=== PATIENT | male | born 1945 | race Caucasian/White ===

== ENCOUNTER 2020-03-20 14:50 | Inpatient (IN) | payer MEDICARE ==
[~2020-03-20] VITALS: Ht 185.4 cm; Wt 84.4 kg
--- NOTE | ~2020-03-20 | RHP ---
PATIENT: JENNIFER SHANNON MEDICAL RECORD: [id number] ACCOUNT: [id number] LOCATION:[place] [id number] : 47 ADMISSION DATE: 03/20/20 REHABILITATION HISTORY AND PHYSICAL EXAMINATION POST ADMISSION PHYSICIAN EXAMINATION ADMISSION DIAGNOSIS: Cellulitis. HISTORY OF PRESENT ILLNESS: The patient presented secondary to persistent right foot pain and also some ulcers and low-grade fever. The patient was COVID negative. He was seen and evaluated for diabetic foot ulcer. Wound apparently began to develop in the fall of 2018 when the patient's daughter noted that he had a screw in the bottom of his foot. He had been seen at [facility] for wound care management, it did not seem to improve. Labs showed an elevated white count. The patient was seen and evaluated by Dr. Yoon, a quality control representative there. 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 He has been on IV antibiotics including Zosyn. He is having dressing changes. He does have a little bit of bloody discharge. He had been started on Entresto. He has had a PICC line placed. He has got to be nonweightbearing on his right lower extremity with limited functional mobility. He has ambulated 3 feet with min assist and transfers with min assist and performs ADLs with mid to mod assist. He is not safe to return home at this time, but hopefully with the rehabilitation he will get better. COMORBIDITIES: In this patient include coronary artery disease, cellulitis, diabetes, hypertension, peripheral arterial disease. PAST MEDICAL HISTORY: Significant for hypertension, diabetes, peripheral arterial disease, coronary artery disease. PAST SURGICAL HISTORY: Includes coronary artery bypass grafting. ALLERGIES: None. CURRENT MEDICATIONS: Include Protonix 40 mg daily. He is on isosorbide 30 mg daily, Plavix 75 mg daily, Entresto 1 tab b.i.d., Lipitor 40 mg daily, Zosyn 4.5 g q.6 hours, Woodland 10/325 one tab q.4-6 hours p.r.n., Coreg 3.125 mg b.i.d. with meals, metformin 1000 mg b.i.d., and MiraLax 17 grams in 8 ounces of water daily. HABITS: No alcohol or tobacco use times. FAMILY HISTORY: Noncontributory. SOCIAL HISTORY: The patient hopes to return back home and get back to his prior level of functioning. REVIEW OF SYSTEMS: GENERAL: Does complain of weakness and fatigue. HEENT: Denies cold, cough, or congestion. CARDIOVASCULAR: Denies any chest pain. PHYSICAL EXAMINATION: VITAL SIGNS: Stable, afebrile. GENERAL: Elderly gentleman, in no acute distress upon exam. HISTORY AND PHYSICAL [id number] JENNIFER SHANNON HEENT: Normocephalic and atraumatic. Mucosa moist. NECK: Supple. No lymphadenopathy. LUNGS: Clear in upper dugan. HEART: Regular rate and rhythm. No murmurs, rubs or gallops. ABDOMEN: Soft and nondistended. Positive bowel sounds times 4. EXTREMITIES: He does have postop area that is noted and has normal swelling to this region. Minimal discharge. NEUROLOGIC: He does have some proximal muscle weakness. LABORATORY DATA: His white count is 9.7, H&H 9.7 and 38.1, and platelet count is noted to be 298. Sodium 137, potassium 4.3, BUN and creatinine of 12 and 1.3. Blood sugar is noted to be 211. ASSESSMENT: This 74-year-old gentleman admitted to the rehab with a working diagnosis of cellulitis of extremity. The patient has potential to make improvement. We instituted the following multidisciplinary therapies to be not limited to physical, occupational, respiratory, speech, nutritional services, prosthetics and orthotics. Given his complex medical condition and risk for more complications, rehabilitation services cannot be provided at a low level of care such as long term facility. PLAN: 1. Admit to [facility] for an inpatient therapy to include the following disciplines; A. Physical therapy to improve gait, all transfer skills and bed mobility to a modified independent level. B. Occupational therapy to improve activities of daily living. C. Case management to help with discharge planning and placement options. D. Nutrition to assist with nutritional needs. E. Rehabilitation nursing to assist in monitoring the patient's underlying medical conditions and to assist with any type of bowel or bladder management. 2. The patient's current medication and medical care will be continued. 3. The patient will be placed on standard fall precautions. 4. The patient's estimated length of stay is approximately 7-10 days. 5. We will discuss this patient during care team staff meeting this week. TRANSINT:[id number] Voice Confirmation ID: [id number] DOCUMENT ID: [id number] EROS notes whether there has been none or any medical/functional change since admission: - No change since preadmission screen. EROS attests patient continues to be appropriate for IRF: - Continues to be appropriate. HISTORY AND PHYSICAL [id number] JENNIFER SHANNON JOHN SCOTT MD CC: [id number] DICTATION DATE: 03/21/20 08 PERSONAL SERVICE REPRESENTATIVE: 03/21/20 1008 ADM IN [place] [id number] [place] [id number]
[2020-03-20] MEDS ORDERED: LIPITOR40 MG PO ×2 (15:55→15:59)
[2020-03-20] MEDS ORDERED: AUGMENTIN 875-11 TAB (15:55)
[2020-03-20] MEDS ORDERED: COREG12.5 MG PO (15:56)
[2020-03-20] MEDS ORDERED: AMIODARONE HCL200 MG (15:56)
[2020-03-20] MEDS ORDERED: PLAVIX75 MG PO (15:58)
[2020-03-20] MEDS ORDERED: OMEPRAZOLE20 M1 PO (15:58)
[2020-03-20] MEDS ORDERED: ISOSORBIDE MONO30 M1 PO (15:59)
[2020-03-20] MEDS ORDERED: ENTRESTO 24 MG1 EACH PO (16:00)
[2020-03-20] MEDS ORDERED: GLUCOPHAGE1000 MG PO (16:00)
[2020-03-20] MEDS ORDERED: ZOSYN 4.5 GM/N4.5 G1 IV (16:01)
--- NOTE | 2020-03-20 19:53 | NUR ---
PT ASLEEP, NO NEEDS NOTED, FALL PRECAUTIONS IN PLACE, FLUIDS/CALL LIGHT WITHIN REACH, NEW ADMIT, RT FOOT TOES AMPUTEE, NWB RT FOOT, MOD ASSIST
[2020-03-20 21:24] VITALS: BP 136/59
[2020-03-21 06:48] LABS: BASOPHILS 0.2 % (0-2); EOSINOPHILS 5.2 % (0-7); HEMATOCRIT 30.1 % (42.0-54.0); HEMOGLOBIN 9.7 g/dL (13.5-17.5); IMMATURE GRANULOCYTES 0.4 % (0-5); LYMPHOCYTES 16.7 % (15-50); MCH 26.6 pg (26.0-34.0); MCHC 32.2 g/dL (31.0-37.0); MCV 82.5 fL (80.0-100.0); MEAN PLATELET VOLUME 9.1 fL (7.4-10.4); MONOCYTES 8.1 % (2-11); NEUTROPHILS 69.4 % (40-80); PLATELET COUNT 298 10x3/uL (130-400); RBC 3.65 10x6/uL (4.20-6.10); RDW 14.2 % (11.5-14.5); WBC 9.7 10x3/uL (4.8-10.8)
[2020-03-21 06:57] LABS: ANION GAP 10.3 mmol/L (8-16); CALCIUM 8.6 mg/dL (8.5-10.1); CREATININE - SERUM 1.3 mg/dL (0.6-1.3); POTASSIUM - SERUM 4.3 mmol/L (3.5-5.1)
--- NOTE | 2020-03-21 07:59 | NUR ---
SHIFT ASSMT COMPLETED.
[2020-03-21 08:24] VITALS: BP 113/63
[2020-03-21 13:29] VITALS: Ht 185.4 cm; Wt 84.4 kg
--- NOTE | 2020-03-21 14:58 | NUR ---
CARE TEAM MEETING: PATIENT IS NEW TO THE UNIT AND WILL BE RA AT NEXT MEETING. WILL CONTINUE TO FOLLOW WITH PATIENT.
[2020-03-21 20:07] VITALS: BP 128/57
--- NOTE | 2020-03-21 20:41 | NUR ---
PT ASLEEP AROUSES EASILY TO VOICE, NO IMMEDIATE NEEDS NOTED, FALL PRECAUTIONS IN PLACE, FLUIDS/CALL LIGHT WITHIN REACH
--- NOTE | 2020-03-22 00:47 | NUR ---
ZOSYN STARTED, LINES GOOD BLOOD RETURN AND FLUSHED EASILY, PICC PATENT, ALCOHOL CAPS IN USE, PT C/O FOOT PAIN FOR FIRST TIME SINCE ARRIVAL, PRN PAIN MED GIVEN
--- NOTE | 2020-03-22 04:59 | NUR ---
PT ASLEEP AROUSES EASILY TO VOICE, RESPIRATIONS EVEN, NO NEEDS NOTED, FALL PRECAUTIONS IN PLACE, FLUIDS/CALL LIGHT WITHIN REACH
[2020-03-22 08:00] VITALS: BP 111/53
--- NOTE | 2020-03-22 08:00 | NUR ---
SHIFT ASSMT COMPLETED.
--- NOTE | 2020-03-22 13:03 | NUR ---
PATIENT ADMITTED TO [facility] FROM [facility]. DME AT HOME IS A WALKER, CANE AND A BEDSIDE COMMODE. PATIENT WILL DISCHARGE HOME WITH FAMILY. WILL CONTINUE TO FOLLOW WITH PATIENT.
--- NOTE | 2020-03-22 20:00 | NUR ---
PT ASLEEP AROUSES EASILY TO VOICE, RESPIRATIONS EVEN, NO NEEDS NOTED, FALL PRECAUTIONS IN PLACE, FLUIDS/CALL LIGHT WITHIN REACH
[2020-03-22 21:19] VITALS: BP 193/100
[2020-03-23 06:46] LABS: BASOPHILS 0.1 % (0-2); EOSINOPHILS 3.8 % (0-7); HEMOGLOBIN 8.9 g/dL (13.5-17.5); IMMATURE GRANULOCYTES 0.2 % (0-5); LYMPHOCYTES 16.6 % (15-50); MCH 26.3 pg (26.0-34.0); MCHC 31.8 g/dL (31.0-37.0); MCV 82.8 fL (80.0-100.0); MEAN PLATELET VOLUME 9.2 fL (7.4-10.4); NEUTROPHILS 71.3 % (40-80); PLATELET COUNT 277 10x3/uL (130-400); RBC 3.38 10x6/uL (4.20-6.10); RDW 14.6 % (11.5-14.5); WBC 8.9 10x3/uL (4.8-10.8)
[2020-03-23 06:51] LABS: CALCIUM 8.7 mg/dL (8.5-10.1); CREATININE - SERUM 1.3 mg/dL (0.6-1.3)
--- NOTE | 2020-03-23 13:22 | NUR ---
Nutrition Follow-up: Diet: Diabetic + Glucerna TID PO intake: ~25% average x last 3 meals. He states that his appetite is "up and down." States that he loves the Glucerna and is drinking all of them. Last BM: 03/23/20. Wt: 186# (03/21/20) Meds noted: metformin. Labs noted: Glu 122(H) Recommend continue current diet and oral nutrition supplement. Encouraged PO intake. RD following.
[2020-03-23 13:28] VITALS: BP 111/63
[2020-03-23 20:00] VITALS: BP 154/67
--- NOTE | 2020-03-23 20:00 | NUR ---
PATIENT RECEIVED SITTING UP IN BED. ASSESSMENT & VITAL SIGNS DONE. IV PATENT. NO SIGNS IF ZOSYN REACTION. NO C/O PAIN OR DISTRESS. PATIENT TOILETED. VOID & SOFT BM. BED LOW. CALL LIGHT WITHIN REACH. WILL CONTINUE TO MONITOR.
--- NOTE | 2020-03-24 04:06 | NUR ---
I have reviewed this patient and I concur with the Shift Assessment completed by the Licensed Practical Nurse today this shift.
[2020-03-24 11:07] VITALS: BP 97/59
--- NOTE | 2020-03-24 18:22 | NUR ---
C/O CHEST PAIN MIDSTERNAL RADIATING INTO NECK AND DOWN LEFT ARM. B/P 164/100 P-83 SP02 100%. CALL TO DR. TSANG AND ORDER RECIEVED FOR NITRO 0.4 MG GIVEN PER PROTOCOL. FIRST DOSE GIVEN.
--- NOTE | 2020-03-24 18:29 | NUR ---
2ND DOSE NITRO GIVEN. STATES PAIN HAS DECREASED FOR A 6 WHEN IT STARTED TO A 3 NOW AND FEELING MUCH BETTER. B/P NOW 159/98 P-81 SP02 100%.
--- NOTE | 2020-03-24 18:42 | NUR ---
STATES PAIN IS NOW AT ABOUT A 1. B/P 149/88 SP02 100%
--- NOTE | 2020-03-24 19:15 | NUR ---
DR. MONSIVAIS RETURNED CALL IN REGARDS TO MR. SHANNON'S CHEST PAIN. INFORMED DR. MONSIVAIS NITRO PROTOCOL WAS FOLLOWED BY DAYSIASYEDA RN. PT STATES "CHEST PAIN HAS SUBSIDED". DR. MONSIVAIS ORDERED CARDIAC ENZEMYS NOW AND REPEAT IN 6 HOURS. THIS NURSE REPEATED ORDERS BACK AND DR. MONSIVAIS VERIFIED.
[2020-03-24 20:34] VITALS: BP 138/71
[2020-03-24 21:03] LABS: CKMB 1.7 U/L (0.0-3.6); CREATINE KINASE 56 UL (21-232); TROPONIN-I 0.025 ng/mL (0.000-0.060)
--- NOTE | 2020-03-24 22:31 | NUR ---
LAB BACK ALL WERE WITHIN NORMAL LIMITS. PATIENT HAS NO PAIN OR DISTRESS AT THIS TIME. CALL LIGHT WITHIN REACH. WILL CONTINUE TO MONITOR.
--- NOTE | 2020-03-25 01:38 | NUR ---
CHANGED BATTERY IN WEARABLE DEFIB, PLACED USED BATTERY ON PARKING METER ATTENDANT. ENSURED DEFIB FUNCTIONING PROPERLY. PT REQUESTS TUMS FOR HEARTBURN ADMININSTERED 1000MG TUMS PER ORDER. NO OTHER NEEDS VOICED. WILL CONTINUE TO MONITOR
--- NOTE | 2020-03-25 02:45 | NUR ---
I have reviewed this patient and I concur with the Shift Assessment completed by the Licensed Practical Nurse today this shift.
[2020-03-25 03:01] LABS: CKMB 2.4 U/L (0.0-3.6); CREATINE KINASE 56 UL (21-232)
[2020-03-25 03:03] LABS: TROPONIN-I 0.202 ng/mL (0.000-0.060)
--- NOTE | 2020-03-25 03:06 | NUR ---
DEANNA, LAB CALLED CRITICAL TROPONIN 0.202. CALLED DR. MONSIVAIS LEFT DETAILED VM. PT IS CURRENTLY RESTING COMFORTABLY. VS STABLE. NO COMPLAINTS OF CHEST PAIN. DEFIB FUNCTIONING PROPERLY. WILL CONTINUE TO MONITOR
--- NOTE | 2020-03-25 03:39 | NUR ---
PATIENT EYES CLOSED. RESPIRATIONS 18 & EVEN. BED LOW. CALL LIGHT WITHIN REACH. WILL CONTINUE TO MONITOR.
[2020-03-25 10:12] VITALS: BP 140/65
--- NOTE | 2020-03-25 10:36 | NUR ---
PT HAS HAD SEVERAL BOUTS OF DIARRHEA TODAY.
[2020-03-25 20:00] VITALS: BP 127/56
--- NOTE | 2020-03-25 20:00 | NUR ---
PATIENT RECEIVED LAYING IN BED. ASSESSMENT & VITAL SIGNS DONE. NO ADVERSE REACTION TO IV ZOSYN AT THIS TIME. BED LOW. ALARM ON. CALL LIGHT WITHIN REACH. WILL CONTINUE TO MONITOR.
--- NOTE | 2020-03-26 03:15 | NUR ---
PATIENT USED CALL LIGHT FOR ASSIST. PATIENT PIVOTED ON LEFT FOOT OUT OF BED. PATIENT USED WALKER INTO BATHROOM. PATIENT HAD VOID & BM. PATIENT RETURNED TO LOW BED. CALL LIGHT WITHIN REACH. WILL CONTINUE TO MONITOR.
--- NOTE | 2020-03-26 03:17 | NUR ---
I have reviewed this patient and I concur with the Shift Assessment completed by the Licensed Practical Nurse today this shift.
[2020-03-26 07:12] LABS: ANION GAP 7.9 mmol/L (8-16); CALCIUM 8.8 mg/dL (8.5-10.1); CARBON DIOXIDE 25.6 mmol/L (21.0-32.0); CREATININE - SERUM 1.3 mg/dL (0.6-1.3); POTASSIUM - SERUM 3.5 mmol/L (3.5-5.1)
[2020-03-26 07:49] LABS: BASOPHILS 0.2 % (0-2); HEMATOCRIT 28.2 % (42.0-54.0); HEMOGLOBIN 9.1 g/dL (13.5-17.5); IMMATURE GRANULOCYTES 0.2 % (0-5); LYMPHOCYTES 16.7 % (15-50); MCH 26.6 pg (26.0-34.0); MCHC 32.3 g/dL (31.0-37.0); MCV 82.5 fL (80.0-100.0); MEAN PLATELET VOLUME 9.1 fL (7.4-10.4); MONOCYTES 8.1 % (2-11); NEUTROPHILS 68.8 % (40-80); PLATELET COUNT 277 10x3/uL (130-400); RBC 3.42 10x6/uL (4.20-6.10); RDW 15.4 % (11.5-14.5); WBC 8.2 10x3/uL (4.8-10.8)
[2020-03-26 08:00] VITALS: BP 160/70
--- NOTE | 2020-03-26 08:10 | NUR ---
ALERT AND ORIENTED. EATING BREAKFAST. CL IN REACH.
--- NOTE | 2020-03-26 13:44 | NUR ---
NO CHANGE IN ASSESSMENT. DRESSING WAS CHANGED USING STERILE PROCEDURE. DRESSING HAD SL AMT BLOODY DRAINAGE LEAKING THROUGH GAUZE/CAMILA. NO C/O PAIN. REMINDED PATIENT TO NOT BE PUTTING PRESSURE ON R LE.
--- NOTE | 2020-03-26 16:11 | NUR ---
CLINICAL UPDATES FAXED TO MARIA M OROZCO, AUTH. # [id number], FAXED TO , CONFORMATION RECIEVED OF FAX. WILL CONTINUE TO FOLLOW WITH PATIENT.
--- NOTE | 2020-03-26 16:30 | NUR ---
PARTICIPATED IN THERAPY TODAY. NO DISTRESS NOTED.
[2020-03-26 19:27] VITALS: BP 156/68
--- NOTE | 2020-03-26 19:34 | NUR ---
PT IN BED ASLEEP, NO IMMEDIATE NEEDS NOTED, RESPIRATIONS EVEN UNLABORED, FALL PRECAUTIONS IN PLACE, FLUIDS/CALL LIGHT WITHIN REACH
--- NOTE | 2020-03-26 22:39 | NUR ---
PT ASLEEP AROUSES EASILY TO VOICE, NO IMMEDIATE NEEDS NOTED, RESPIRATIONS EVEN UNLABORED, FALL PRECAUTIONS IN PLACE, FLUIDS/CALL LIGHT WITHIN REACH
--- NOTE | 2020-03-27 00:10 | NUR ---
PT PIPERACILLIN RUNNING PER ORDER, PICC PATENT, DRSG ADHERED TO SKIN ALCOHOL CAPS IN USE, RED LINE FLUSHING WELL, PURPLE LINE UNFLUSHABLE, WILL ASK FOR HEPARIN FLUSH FOR PURPLE LINE
--- NOTE | 2020-03-27 01:33 | NUR ---
PT ASLEEP AROUSES EASILY TO VOICE, NO IMMEDIATE NEEDS NOTED, RESPIRATIONS EVEN UNLABORED, FALL PRECAUTIONS IN PLACE, FLUIDS/CALL LIGHT WITHIN REACH
[2020-03-27 07:30] VITALS: BP 178/82
--- NOTE | 2020-03-27 12:52 | NUR ---
Nutrition Follow-up: Diet: Diabetic + Glucerna TID PO intake: ~84% average x last 4 meals. He reports that his appetite is "alright." States that he loves the Glucerna and is drinking them all. Last BM: 03/26/20. Wt: 186# (03/21/20) Meds noted: metformin. Labs noted: Glu 95(WNL) Skin: non-healing wound on R foot s/p metatarsal amputation Recommend continue current diet and oral nutrition supplements. RD following.
--- NOTE | 2020-03-27 19:28 | NUR ---
PT IN BED WATCHING TV, PIPERACILIN RUNNING, NO NEEDS NOTED, FALL PRECAUTIONS IN PLACE, FLUIDS/CALL LIGHT WITHIN REACH
[2020-03-27 21:07] VITALS: BP 98/50
[2020-03-28 06:41] LABS: BASOPHILS 0.4 % (0-2); EOSINOPHILS 7.4 % (0-7); HEMOGLOBIN 8.3 g/dL (13.5-17.5); IMMATURE GRANULOCYTES 0.1 % (0-5); LYMPHOCYTES 25.4 % (15-50); MCH 26.5 pg (26.0-34.0); MCHC 31.9 g/dL (31.0-37.0); MCV 83.1 fL (80.0-100.0); MEAN PLATELET VOLUME 9.1 fL (7.4-10.4); MONOCYTES 9.3 % (2-11); NEUTROPHILS 57.4 % (40-80); PLATELET COUNT 261 10x3/uL (130-400); RBC 3.13 10x6/uL (4.20-6.10); RDW 16.2 % (11.5-14.5); WBC 7.3 10x3/uL (4.8-10.8)
[2020-03-28 06:46] LABS: ANION GAP 9.2 mmol/L (8-16); CALCIUM 8.6 mg/dL (8.5-10.1); CARBON DIOXIDE 26.6 mmol/L (21.0-32.0); CREATININE - SERUM 1.2 mg/dL (0.6-1.3); POTASSIUM - SERUM 3.8 mmol/L (3.5-5.1)
[2020-03-28 08:08] VITALS: BP 103/40
--- NOTE | 2020-03-28 08:15 | NUR ---
SHIFT ASSMT COMPLETED.CL IN REACH.BREAKFAST TRAY GIVEN.
[2020-03-28 11:01] VITALS: BP 92/44
[2020-03-28 11:04] VITALS: BP 90/46
--- NOTE | 2020-03-28 19:43 | NUR ---
PT ASLEEP AROUSES EASILY TO VOICE, RESPIRATIONS EVEN AND UNLABORED, NO IMMEDIATE NEEDS NOTED, FALL PRECAUTIONS IN PLACE, FLUIDS/CALL LIGHT WITHIN REACH
[2020-03-28 21:15] VITALS: BP 149/52
--- NOTE | 2020-03-29 03:14 | NUR ---
PICC DRSG CHANGED, USING PICC DRSG CHANGE SYSTEM
[2020-03-29 07:07] LABS: BASOPHILS 0.5 % (0-2); EOSINOPHILS 8.3 % (0-7); HEMATOCRIT 21.5 % (42.0-54.0); IMMATURE GRANULOCYTES 0.5 % (0-5); LYMPHOCYTES 22.4 % (15-50); MCH 26.7 pg (26.0-34.0); MCHC 32.1 g/dL (31.0-37.0); MCV 83.3 fL (80.0-100.0); MEAN PLATELET VOLUME 8.8 fL (7.4-10.4); MONOCYTES 6.3 % (2-11); RBC 2.58 10x6/uL (4.20-6.10); RDW 16.4 % (11.5-14.5); WBC 6.5 10x3/uL (4.8-10.8)
[2020-03-29 07:11] LABS: HEMOGLOBIN 6.9 g/dL (13.5-17.5); PLATELET COUNT 200 10x3/uL (130-400)
--- NOTE | 2020-03-29 07:30 | NUR ---
RECEIVED THIS AM AWAKE,RESTING QUIETLY IN BED.DENIES NEEDS.DERSSING INTACT TO RT FOOT,CLEAN AND DRY.CL IN EASY REACH,BED IN LOW POSITION.BED ALARM ON.WILL COTINUE WITH CURRENT PLAN OF CARE.
[2020-03-29 08:00] VITALS: BP 118/46
--- NOTE | 2020-03-29 12:20 | NUR ---
CARE TEAM MEETING: PATIENT IS MAKING PROGRESS IN THERAPY. HIS TENATIVE DISCHARGE DATE IS 04/05/20. WILL CONTINUE TO FOLLOW WITH PATIENT.
--- NOTE | 2020-03-29 20:48 | NUR ---
PT IN BED WITH 1ST UNIT OF PRBC'S RUNNING, HAD TO GET 2ND UNIT AND START IT STILL NEED TO RUN 1800 ZOSYN THAT DAY SHIFT DID NOT RUN, VS GOOD NO ADVERSE REACTIONS NOTED, T-98.2, P-75, R-20, BP-153/78 BEGINNING T-98.1, P-71, R-18, BP-149/67 15MIN VS
[2020-03-29 21:07] VITALS: BP 143/63
--- NOTE | 2020-03-29 23:41 | NUR ---
PT PRBC'S INFUSION COMPLETE WITHOUT ADVERSE REACTION,
--- NOTE | 2020-03-30 00:39 | NUR ---
PTS 0000 PIPERACILLIN COMPLETE, WASTED 6P PIPERACILLIN FROM 7A-7P SHIFT MED WAS MIXED BUT NOT GIVEN DUE TO 1ST UNIT OF PRBC'S RUNNING, THIS NURSE DID NOT KNOW HOW LONG IT HAD BEEN MIXED OR WHAT THE LIFE/QUALITY OF THIS MED WOULD BE
--- NOTE | 2020-03-30 00:45 | NUR ---
PT ASLEEP, AROUSES EASILY TO VOICE, RESPIRATIONS EVEN AND UNLABORED, NO IMMEDIATE NEEDS NOTED AT THIS TIME, FALL PRECAUTIONS IN PLACE, FLUIDS/CALL LIGHT WITHIN REACH
--- NOTE | 2020-03-30 04:17 | NUR ---
PT ASLEEP, AROUSES EASILY TO VOICE, RESPIRATIONS EVEN AND UNLABORED, NO IMMEDIATE NEEDS NOTED AT THIS TIME, FALL PRECAUTIONS IN PLACE, FLUIDS/CALL LIGHT WITHIN REACH
[2020-03-30 05:52] LABS: BASOPHILS 0.6 % (0-2); EOSINOPHILS 12.9 % (0-7); IMMATURE GRANULOCYTES 0.3 % (0-5); LYMPHOCYTES 24.5 % (15-50); MCH 26.9 pg (26.0-34.0); MCHC 32.4 g/dL (31.0-37.0); MCV 83.2 fL (80.0-100.0); MEAN PLATELET VOLUME 9.1 fL (7.4-10.4); MONOCYTES 6.9 % (2-11); NEUTROPHILS 54.8 % (40-80); PLATELET COUNT 239 10x3/uL (130-400); WBC 6.7 10x3/uL (4.8-10.8)
[2020-03-30 06:23] LABS: ANION GAP 12.5 mmol/L (8-16); CALCIUM 8.8 mg/dL (8.5-10.1); CARBON DIOXIDE 28.5 mmol/L (21.0-32.0); CREATININE - SERUM 1.3 mg/dL (0.6-1.3)
[2020-03-30 06:42] LABS: HEMATOCRIT 34.6 % (42.0-54.0); HEMOGLOBIN 11.2 g/dL (13.5-17.5); RBC 4.16 10x6/uL (4.20-6.10)
--- NOTE | 2020-03-30 08:05 | NUR ---
ALERT AND ORIENTED X3, UP IN WC AT BEDSIDE HAVING BREAKFAST. CL AT SIDE
[2020-03-30 08:28] VITALS: BP 141/64
--- NOTE | 2020-03-30 09:30 | NUR ---
DOWN TO THERAPY GYM WITH THERAPY. DENIES NEEDS
--- NOTE | 2020-03-30 13:26 | NUR ---
Nutrition Follow-up: Diet: Diabetic + Glucerna TID PO intake: ~66% average x last 7 meals, he likes and drinks all Glucerna Last BM: 03/30/20. Wt: 186# (03/21/20) Meds noted: metformin. Labs reviewed. Recommend continue current diet and oral nutrition supplement. RD following.
--- NOTE | 2020-03-30 13:31 | NUR ---
IN GYMN AFTER LUNCH, TOLERATING WELL, NO NEEDS VOICED.
[2020-03-30 19:38] VITALS: BP 148/66
--- NOTE | 2020-03-30 20:00 | NUR ---
PATIENT RECEIVED SITTING UP IN BED. DAUGHTER IN ROOM. ASSESSMENT & VITAL SIGNS DONE. NO ADVERSE REACTION TO IV ANTIBIOTICS AT THIS TIME. BED LOW. CALL LIGHT WITHIN REACH. WILL CONTINUE TO MONITOR.
--- NOTE | 2020-03-31 04:56 | NUR ---
PATIENT EYES CLOSED. RESPIRATIONS 18 & EVEN. BED LOW. CALL LIGHT WITHIN REACH. WILL CONTINUE TO MONITOR.
[2020-03-31 07:35] VITALS: BP 123/56
--- NOTE | 2020-03-31 08:24 | NUR ---
HE IS SLEEPING, AROUSE TO MY VOICE. STATES HE FEELS LITTLE NAUSEA THIS MORNING. HAS A CAMILA DRESSING TO HIS RIGHT FOOT, CLEAN AND DRY AND INTACT. THE CALL LIGHT IS WITHIN REACH. DENIES ANY PAIN OR NEEDS AT THIS TIME. HE IS WEARING HIS LIFE VEST.
--- NOTE | 2020-03-31 17:40 | NUR ---
HE IS FEELING BETTER THIS EVENING. HE ATE SOME DINNER. THE DRESSING TO HIS RIGHT FOOT IS INTACT WITH AN CAMILA WRAP. THE CALL LIGHT IS WITHIN REACH.
--- NOTE | 2020-03-31 19:26 | NUR ---
PATIENT RECEIVED SITTING UP IN BED. ASSESSMENT & VITAL SIGNS DONE. BED LOW. CALL LIGHT WITHIN REACH. WILL CONTINUE TO MONITOR.
[2020-03-31 20:24] VITALS: BP 131/61
--- NOTE | 2020-03-31 23:19 | NUR ---
I have reviewed this patient and I concur with the Shift Assessment completed by the Licensed Practical Nurse today this shift.
--- NOTE | 2020-04-01 07:52 | NUR ---
SITTING UP ON SIDE OF BED EATING BREAKFAST, DENIES ANY NEEDS AT THIS TIME, C/L AND FLUIDS IN REACH.
[2020-04-01 08:26] VITALS: BP 140/69
--- NOTE | 2020-04-01 12:24 | NUR ---
SITTING UP IN BED EATING LUNCH, DENIES ANY NEEDS AT THIS TIME, C/L AND FLUIDS IN REACH.
--- NOTE | 2020-04-01 15:00 | NUR ---
I have reviewed this patient and I concur with the Shift Assessment completed by the Licensed Practical Nurse today this shift.
--- NOTE | 2020-04-01 16:07 | NUR ---
RESTING IN BED WITH EYES CLOSED, NO S/S OF DISTRESS NOTED, RESP EVEN AND UNLABORED, C/L AND FLUIDS IN REACH.
[2020-04-01 20:00] VITALS: BP 140/66
--- NOTE | 2020-04-01 20:00 | NUR ---
PATIENT RECEIVED SITTING UP IN BED. ASSESSMENT & VITAL SIGNS DONE. NO C/O PAIN OR DISTRESS. NO ADVERSE REACTION TO IV ANTIBIOTICS. BED LOW. CALL LIGHT WITHIN REACH. WILL CONTINUE TO MONITOR.
--- NOTE | 2020-04-02 01:36 | NUR ---
PATIENT IV ANTIBIOTICS FINISHED. NO ADVERSE REACTION AT THIS TIME. BED LOW. CALL LIGHT WITHIN REACH. WILL CONTINUE TO MONITOR.
--- NOTE | 2020-04-02 04:31 | NUR ---
I have reviewed this patient and I concur with the Shift Assessment completed by the Licensed Practical Nurse today this shift.
[2020-04-02 07:08] LABS: BASOPHILS 0.6 % (0-2); HEMATOCRIT 33.9 % (42.0-54.0); HEMOGLOBIN 10.9 g/dL (13.5-17.5); IMMATURE GRANULOCYTES 0.2 % (0-5); LYMPHOCYTES 22.8 % (15-50); MCH 26.8 pg (26.0-34.0); MCHC 32.2 g/dL (31.0-37.0); MCV 83.5 fL (80.0-100.0); MEAN PLATELET VOLUME 9.1 fL (7.4-10.4); NEUTROPHILS 56.4 % (40-80); PLATELET COUNT 214 10x3/uL (130-400); RBC 4.06 10x6/uL (4.20-6.10); RDW 16.3 % (11.5-14.5); WBC 6.5 10x3/uL (4.8-10.8)
[2020-04-02 07:24] LABS: ANION GAP 12.2 mmol/L (8-16); CALCIUM 8.7 mg/dL (8.5-10.1); CARBON DIOXIDE 26.8 mmol/L (21.0-32.0); CREATININE - SERUM 1.1 mg/dL (0.6-1.3)
--- NOTE | 2020-04-02 08:09 | NUR ---
UP IN W/C WITH THERAPY EATING BREAKFAST, DENIES ANY NEEDS AT THIS TIME.
[2020-04-02 08:11] VITALS: BP 111/63
--- NOTE | 2020-04-02 12:00 | NUR ---
SITTING UP ON SIDE OF BED EATING LUNCH, DENIES ANY NEEDS AT THIS TIME, C/L AND FLUIDS IN REACH.
--- NOTE | 2020-04-02 12:01 | NUR ---
CLINICAL UPDATE FAXED TO MARIA M OROZCO AT , AUTH. # [id number] WITH CONFORMATION OF FAX RECIEVED. WILL CONTINUE TO FOLLOW WITH PATIENT.
--- NOTE | 2020-04-02 16:00 | NUR ---
RESTING IN BED WITH EYES CLOSED, NO S/S OF DISTRESS NOTED, RESP EVEN AND UNLABORED, C/L AND FLUIDS IN REACH.
--- NOTE | 2020-04-02 20:01 | NUR ---
PT IN BED, WATCHING TV, NO NEEDS NOTED, RESPIRATIONS EVEN AND UNLABORED, FALL PRECAUTIONS IN PLACE, FLUIDS/CALL LIGHT WITHIN REACH, PATRIC PICC LINE PATENT, ALCOHOL CAPS IN USE
[2020-04-02 20:11] VITALS: BP 141/66
--- NOTE | 2020-04-03 00:43 | NUR ---
PT IN BED ASLEEP, AROUSES EASILY TO VOICE, NO NEEDS NOTED, RESPIRATIONS EVEN AND UNLABORED, FALL PRECAUTIONS IN PLACE, FLUIDS/CALL LIGHT WITHIN REACH
--- NOTE | 2020-04-03 06:32 | NUR ---
PT RT FOOT CAMILA BANDAGE CAME OFF, NOTED BLOOD SOAKED THRU KERLIX, DRSG CHANGED 0600 ON 04/03/20, NOTED AREA HAS DEHISCED ON GREAT TOE SIDE, COPIOUS AMOUNT SEROSANGINOUS ON OLD DRSG, AREA CLEANED, BETADINE AND NON ADHERENT PADS APPLIED, COVERED WITH KERLIX AND CAMILA WRAP PICC LINE FLUSHED, RED SIDE UNUSABLE WILL NOT FLUSH, PURPLE FLUSHABLE AND HAS BLOOD RETURN
[2020-04-03 07:30] VITALS: BP 131/65
--- NOTE | 2020-04-03 07:30 | NUR ---
RESTING QUIETLY IN BED.DENIES NEEDS.ASSESSMENT COMPLETED.CL IN EASY REACH,BED IN LOW POSITION.DRESSING INTACT TO RIGHT FOOT,CLEAN,DRY.WILL CONTINUE WITH CURRENT PLAN OF CARE.
--- NOTE | 2020-04-03 14:02 | NUR ---
Nutrition Follow-up: Diet: Diabetic + Glucerna TID PO intake: ~53% average x last 9 meals. He states that his appetite is "so-so." He does like and drink 1 carton of Glucerna TID. Last BM: 04/02/20 x 2. Wt: 186# (03/21/20) Meds noted: metformin. Labs noted: Glu 118(H) Skin: R foot toe amputation with incision Recommend continue current diet and oral nutrition supplement. Patient is likely meeting his estimated nutrition needs via PO intake + oral nutrition supplement intake. RD following.
--- NOTE | 2020-04-03 19:16 | NUR ---
PT UP IN CHAIR PLAYING SOLITAIRE, NO NEEDS NOTED, FALL PRECAUTIONS IN PLACE, FLUIDS/CALL LIGHT WITHIN REACH, RESPIRATIONS EVEN AND UNLABORED
--- NOTE | 2020-04-03 21:00 | NUR ---
PT PICC LINE FLUSHED AT MED PASS
[2020-04-03 22:09] VITALS: BP 114/58
--- NOTE | 2020-04-03 23:58 | NUR ---
PT ASLEEP, AROUSES EASILY TO VOICE, NO IMMEDIATE NEEDS NOTED, FALL PRECAUTIONS IN PLACE, RESPIRATIONS EVEN AND UNLABORED, FLUIDS/CALL LIGHT WITHIN REACH
[2020-04-04 07:20] LABS: BASOPHILS 0.5 % (0-2); EOSINOPHILS 13.2 % (0-7); HEMATOCRIT 35.1 % (42.0-54.0); HEMOGLOBIN 11.5 g/dL (13.5-17.5); IMMATURE GRANULOCYTES 0.2 % (0-5); MCH 27.4 pg (26.0-34.0); MCHC 32.8 g/dL (31.0-37.0); MCV 83.6 fL (80.0-100.0); MEAN PLATELET VOLUME 9.1 fL (7.4-10.4); MONOCYTES 8.6 % (2-11); NEUTROPHILS 47.5 % (40-80); PLATELET COUNT 218 10x3/uL (130-400); RDW 16.7 % (11.5-14.5); WBC 5.9 10x3/uL (4.8-10.8)
[2020-04-04 07:40] LABS: ANION GAP 13.4 mmol/L (8-16); CALCIUM 8.5 mg/dL (8.5-10.1); CARBON DIOXIDE 26.3 mmol/L (21.0-32.0); CREATININE - SERUM 1.2 mg/dL (0.6-1.3); POTASSIUM - SERUM 3.7 mmol/L (3.5-5.1)
[2020-04-04 08:00] VITALS: BP 134/65
--- NOTE | 2020-04-04 09:42 | NUR ---
PARTICIPATED IN THERAPY THIS AM. NO C/O PAIN. DRESSING CDI TO R TOES.
--- NOTE | 2020-04-04 13:38 | NUR ---
NO CHANGE IN ASSESSMENT. RESTING IN ROOM. CL IN REACH.
--- NOTE | 2020-04-04 17:25 | NUR ---
ADMIT TO ROOM 1114A. DRESSING TO R GROIN. MILLI DRAIN R. LEGS/FEET EDEMA 3+. GEETHA SCDS ON.
--- NOTE | 2020-04-04 20:46 | NUR ---
PT IN BED NO IMMEDIATE NEEDS NOTED, FALL PRECAUTIONS IN PLACE, RESPIRATIONS EASY AND EVEN, BED IN LOWEST POSITION, FLUIDS/CALL LIGHT WITHIN REACH
[2020-04-04 20:53] VITALS: BP 153/71
[2020-04-05 08:00] VITALS: BP 142/72
--- NOTE | 2020-04-05 09:56 | NUR ---
PATIENT DISCHARING HOME TODAY WITH FAMILY. [facility] WILL PROVIDE THERAPY AT HOME. NO NEW DME NEEDED AT THIS TIME. LIBRADO SIGNED, IMM SERVED AND EXPLAINED, ONE GIVEN TO PATIENT AND ONE FILED IN CHART. [facility] 04/11/20 @ 10:40, DR. HUDSON WILL CALL PATIENT WITH AN APPOINTMENT, DR. RAGSDALE 04/09/20 @ 10:00. D/C INSTRUCTIONS HAVE BEEN FAXED TO PCP, HOME HEALTH, PATIENT INSURANCE MARIA M OROZCO , AUTH. # [id number], AND REVIEWED WITH PATIENT PER PRIMARY NURSE.
--- NOTE | 2020-04-05 12:30 | NUR ---
DC HOME WITH FAMILY MEMBER. MEDS CALLED INTO PHARMACY. TEACHING DONE REGUARDING WHEN TO CHANGE RT FOOT DSG AND BATTERY CHANGE IN LIFE DEAN DEFIB. HE STATES UNDERSTANDING OF TEACHING AND DENIES QUESTIONS.
== END 2020-04-05 12:30 | disposition home health service (06) | DRG 603 ==
LOC: D.REHAB 14:50
PROVIDERS: ADMIT Emergency Medicine; ATTEND Emergency Medicine
DX: L03.115 Cellulitis of right lower limb (principal); E11.9 Type 2 diabetes mellitus without complications; I10 Essential (primary) hypertension; I73.9 Peripheral vascular disease, unspecified; R50.9 Fever, unspecified; I25.5 Ischemic cardiomyopathy; I25.119 Atherosclerotic heart disease of native coronary artery with unspecified angina pectoris; I34.0 Nonrheumatic mitral (valve) insufficiency